=== PATIENT | female | born 1940 | race Caucasian/White ===

== ENCOUNTER 2017-01-26 06:10 | Observation (INO) | payer OTHER ==
--- NOTE | ~2017-01-26 | HP ---
History And Physical [id number] [facility] [place]. [address] NAME: MARY KAY VAZQUEZ : 40 STATUS : ADM Vielka PAT#: [id number] AGE: 76 ADM/REG DATE : 01/26/17 MR#: [id number] REPORT SERV DATE: 01/26/17 DICTATED BY: MARY KAY CERVANTES DATE: 01/26/17 REPORT STATUS : Draft TRANSCRIBED BY: MODL DATE: 01/26/17 DATE OF ADMISSION: 01/26/2017 PRIMARY CARE PROVIDER: Darci Barraza M.D., [place], [place]. BRIM STRETCHER: Phillip Du M.D. CHIEF COMPLAINT: Atypical chest pain. HISTORY OF PRESENT ILLNESS: A very pleasant 76-year-old white female with no known history of CAD, but with chronic systolic heart failure and recently replaced generator for BiV AICD with known EF of 40% by echo on 01/03/2017. The patient presents with atypical chest pain. She reports that on 01/25/2017 she underwent a colonoscopy at [facility] by Dr. Real. She states that polyps were removed and a biopsy was taken. On 01/26/2017, she awoke around 0215 hours with chest pain and back pain. She thought it was a gas, tried Tums with no improvement. She states the chest pain "just hurt." She reports associated shortness of breath, diaphoresis. Denies nausea, dizziness, or belching. At its most intense, the chest pain was rated an 8/10 at time of interview in the CPOU. She is pain free. Episode lasted approximately 3 hours in duration and was relieved with Dilaudid and Zofran provided in the emergency room. She reports that these pains were different than anything she previously experienced and her concern was that they were "persistent." The patient denies any personal history of myocardial infarction, stroke, DVT, or pulmonary embolus. The patient denies any recent fever or chills. Denies palpitations. No shocks delivered. Her device is transmitted telephonically to [facility]. Denies syncopal episodes. No PND or orthopnea. PAST MEDICAL HISTORY: 1. Chronic systolic heart failure with BiV AICD with recent generator replaced, 12/2016. 2. EF 40% by echo, 12/2016. 3. Chronic AFib, INR followed by PCP. 4. Dilated cardiomyopathy. 5. Dyslipidemia. 6. Denies diabetes or hypertension. PAST SURGICAL HISTORY: 1. AICD, upgrade 12/2016. 2. Partial thyroidectomy for growth. SOCIAL HISTORY: She is with one child. She is retired management trainer. Does not have a structured exercise routine. Denies tobacco, alcohol, or illicits. FAMILY HISTORY: No embolic events reported in first-degree relatives. REVIEW OF SYSTEMS: History And Physical [address] [address] NAME: MARY KAY VAZQUEZ : 40 STATUS : ADM iVelka PAT#: [id number] AGE: 76 ADM/REG DATE : 01/26/17 MR#: [id number] REPORT SERV DATE: 01/26/17 DICTATED BY: MARY KAY CERVANTES DATE: 01/26/17 REPORT STATUS : Draft TRANSCRIBED BY: MODL DATE: 01/26/17 A 14-point review of systems performed, significant for HPI including home blood pressure of 120/80 and a most recent INR one week ago of 2.5. Warfarin has been held for four days prior to colonoscopy with instructions to resume tonight. The patient will get INR check at PCP in one week. Otherwise, complete review of systems obtained and negative. ALLERGIES: ALLERGY TO LISINOPRIL, COUGH. HOME MEDICINES: Tums p.r.n., carvedilol 12.5 mg twice daily, Colace p.r.n., Lasix 40 mg daily, losartan 25 mg daily, fenofibrate 54 mg nightly, magnesium p.r.n., warfarin 4 mg nightly. PHYSICAL EXAMINATION: VITAL SIGNS: Blood pressure 151/72, pulse 75, respirations 22, temperature 97.4, O2 saturation 96% on room air. Height 5 feet 6 inches, weight 206 pounds, BMI 33. GENERAL: Cooperative, in no apparent distress. HEENT: Pupils 2 mm, sclera nonicteric. Nares patent. Moist mucous membranes. No xanthelasma. NECK: Trachea midline, no thyromegaly. No JVD. No bruits. LYMPH: No cervical lymphadenopathy. No supraclavicular lymphadenopathy. RESPIRATORY: Unlabored respirations. Breath sounds clear bilaterally to posterior auscultation. No wheezes or rhonchi. CARDIOVASCULAR: Regular rate. No murmur, rub or gallop appreciated. Left greater than right trace ankle edema. Pulses 2+ bilaterally. ABDOMEN: Obese, soft, nontender, nondistended, normal bowel sounds auscultated throughout. No organomegaly. SKIN: Warm, dry extremities. No pallor, or cyanosis. PSYCHIATRIC: Appropriate affect. Alert, oriented x3. LABORATORY DATA: Troponin less than 0.02, 0.03, third pending. Potassium 4.4, BUN 22, creatinine 1.04, glucose 145. Magnesium 2.1. Lipase 120. WBC 8.4, hemoglobin 13.3, hematocrit 39.3, platelet count 170,000. EKG ventricular paced (chronic AFib). Echo, 12/26/2016: EF 40%. Mild global HK. Moderate MARIANN. Trace pericardial effusion. EF improved since echo of 10/2013. Cath 2007: No CAD. CT of abdomen and pelvis: Cardiomyopathy, pacemaker, gallstones. Diverticulosis. Appendix normal. Ultrasound of abdomen: Gallstones with sludge fatty liver. ASSESSMENT AND PLAN: 1. Atypical chest pain which may be GI related. The patient will be observed in the CPOU. Serial enzymes and serial EKGs and held n.p.o. for vasodilator stress test today given ventricular paced. The patient will be discharged home if negative study to follow up with her PCP and Pauline Valdivia as warranted, and Dr. Du in 04/2017. History And Physical [address] [address] NAME: GEORGE,MARY KAYVAZQUEZ EMANUEL : 40 STATUS : ADM Vielka PAT#: [id number] AGE: 76 ADM/REG DATE : 01/26/17 MR#: [id number] REPORT SERV DATE: 01/26/17 DICTATED BY: MARY KAY CERVANTES DATE: 01/26/17 REPORT STATUS : Draft TRANSCRIBED BY: JHONATAN DATE: 01/26/17 2. Chronic systolic heart failure, euvolemic. ejection fraction 40%, improved on most recent echo. 3. Chronic atrial fibrillation, warfarin recently held for four days prior to colonoscopy. The patient will resume warfarin tonight as instructed if no further cardiac testing required with INR checked by PCP in one week. 4. Dyslipidemia, continue fenofibrate. JASON/JHONATAN KIERA Allan, MILVIA-BC / [id number] CC: KIERA Allan, MENAGERIE CARETAKER-BC Phillip Du M.D.
[2017-01-26 06:01] LABS: BASOPHILS 0.1 %; BASOPHILS ABSOLUTE 0.01 10/3/uL (0.0-0.16); EOSINOPHILS 1.8 %; EOSINOPHILS ABSOLUTE 0.15 10/3/uL (0.0-0.53); HEMATOCRIT 39.3 % (36.0-48.0); HEMOGLOBIN 13.3 g/dL (12.0-16.0); IMMATURE GRANULOCYTES 0.2 %; IMMATURE GRANULOCYTES ABSOLUTE 0.02 10/3/uL (0.0-0.11); LYMPHOCYTES 17.7 %; LYMPHOCYTES ABSOLUTE 1.48 10/3/uL (0.67-4.30); MEAN CORPUS HGB CONC 33.8 g/dL (32.0-36.0); MEAN CORPUSCULAR VOLUME 85.8 fL (80-100); MEAN PLATELET VOLUME 9.6 fL (9.2-13.0); MONOCYTES 6.9 %; MONOCYTES ABSOLUTE 0.58 10/3/uL (0.21-1.20); NEUTROPHILS 73.3 %; NEUTROPHILS ABSOLUTE 6.12 10/3/uL (2.02-8.40); PLATELET COUNT 170 10/3/uL (150-400); RBC DISTRIBUTION WIDTH 13.4 % (12.0-16.0); RED CELL COUNT 4.58 10/6/uL (4.0-5.6)
[2017-01-26 06:04] LABS: ER CBC TAT 0 Hrs 08 Mins; MANUAL DIFF NO %; WHITE BLOOD CELLS 8.4 10/3/uL (4.5-10.5)
[2017-01-26 06:09] LABS: INTERNATIONAL NORMAL RATI 1.5 UNITS (-); PARTIAL THROMBO TIME 32.9 SEC (22.5-37.2); PROTIME (NOT ORD) 17.6 SEC (12.0-14.5)
[~2017-01-26 06:10] MED LIST: COREG12 PO; JANTOVEN1 MG PO; JANTOVEN4 MG PO; L40 PO; LOFIBRA54 MG PO; MAGNESIUM PO; PRIN10 PO; VITAMIN D31000 UNIT PO; VITD PO; [UNRECOGNIZED DRUG - OTHER] PO
[2017-01-26 06:19] LABS: ALBUMIN 3.9 G/DL (3.5-5.0); ALKALINE PHOSPHATASE 59 U/L (45-117); BUN (BLOOD UREA NITROGEN) 22 MG/DL (6-23); CALCIUM, SERUM 9.7 MG/DL (8.5-10.4); CHEST PAIN PROFILE TAT 0 Hrs 23 Mins; CHLORIDE, SERUM 109 MMOL/L (96-112); CO2 (CARBON DIOXIDE) 24 MMOL/L (24-34); CREATININE 1.04 MG/DL (0.55-1.02); DIRECT BILIRUBIN 0.2 MG/DL (0.0-0.4); GFR AFRICAN AMERICAN 60 ML/MIN (>=60); GFR NON AFRICAN AMERICAN 52 ML/MIN (>=60); GLUCOSE, SERUM 145 MG/DL (60-99); INDIRECT BILIRUBIN(NOT ORDER) 0.5 MG/DL (0.1-0.9); POTASSIUM, SERUM 4.4 MMOL/L (3.5-5.3); SGOT(AST) 22 U/L (5-40); SGPT(ALT) 18 U/L (5-65); SODIUM, SERUM 141 MMOL/L (135-148); TOTAL BILIRUBIN 0.7 MG/DL (0-1.2); TOTAL PROTEIN 7.2 G/DL (6.0-8.5); TROPONIN I <0.02 NG/ML (<0.05)
[2017-01-26] MEDS ORDERED: FENOFIBRATE PO (09:03)
[2017-01-26] MEDS ORDERED: COREG12 PO (09:03)
[2017-01-26] MEDS ORDERED: COZ25 PO (09:03)
[2017-01-26] MEDS ORDERED: L40 PO (09:04)
[2017-01-26] MEDS ORDERED: COUMADIN4 MG PO (09:04)
[2017-01-26] MEDS ORDERED: MAGNESIUM OTC PO (09:05)
[2017-01-26] MEDS ORDERED: TUMSROLL PO (09:05)
[2017-01-26] MEDS ORDERED: DSS PO (09:06)
[2017-01-26] MEDS ORDERED: MIRALAX POWDER1 PKT PO (09:06)
[2017-01-26] MEDS ORDERED: MAGNESIUM CITRATE PO (09:07)
[2017-01-26 12:10] LABS: TROPONIN I 0.03 NG/ML (<0.05)
[2017-01-26 16:42] LABS: CHOL/HDL RATIO(NOT ORDER) 3.1 (0-5)
[2017-01-27 05:47] LABS: BASOPHILS 0 %; EOSINOPHILS ABSOLUTE 0.16 10/3/uL (0.0-0.53); HEMATOCRIT 38.6 % (36.0-48.0); HEMOGLOBIN 12.5 g/dL (12.0-16.0); LYMPHOCYTES 31.9 %; LYMPHOCYTES ABSOLUTE 1.73 10/3/uL (0.67-4.30); MANUAL DIFF NO %; MEAN CORPUS HGB CONC 32.4 g/dL (32.0-36.0); MEAN CORPUSCULAR HEMOGLOB 28.5 pg (26.0-34.0); MEAN CORPUSCULAR VOLUME 88.1 fL (80-100); MEAN PLATELET VOLUME 9.8 fL (9.2-13.0); MONOCYTES 8.3 %; MONOCYTES ABSOLUTE 0.45 10/3/uL (0.21-1.20); NEUTROPHILS 56.8 %; NEUTROPHILS ABSOLUTE 3.08 10/3/uL (2.02-8.40); PLATELET COUNT 150 10/3/uL (150-400); RBC DISTRIBUTION WIDTH 13.2 % (12.0-16.0); RED CELL COUNT 4.38 10/6/uL (4.0-5.6); WHITE BLOOD CELLS 5.4 10/3/uL (4.5-10.5)
[2017-01-27 05:55] LABS: INTERNATIONAL NORMAL RATI 1.4 UNITS (-); PROTIME (NOT ORD) 17.2 SEC (12.0-14.5)
[2017-01-27 06:06] LABS: A/G RATIO 1.2 (0.7-1.9); ALBUMIN 3.6 G/DL (3.5-5.0); ALKALINE PHOSPHATASE 55 U/L (45-117); BUN (BLOOD UREA NITROGEN) 24 MG/DL (6-23); CALCIUM, SERUM 9.1 MG/DL (8.5-10.4); CHLORIDE, SERUM 105 MMOL/L (96-112); CREATININE 1.19 MG/DL (0.55-1.02); GFR AFRICAN AMERICAN 51 ML/MIN (>=60); GFR NON AFRICAN AMERICAN 44 ML/MIN (>=60); POTASSIUM, SERUM 4.7 MMOL/L (3.5-5.3); SGOT(AST) 19 U/L (5-40); SGPT(ALT) 15 U/L (5-65); SODIUM, SERUM 142 MMOL/L (135-148); TOTAL BILIRUBIN 0.8 MG/DL (0-1.2); TOTAL PROTEIN 6.6 G/DL (6.0-8.5)
[2017-01-27 06:07] LABS: CO2 (CARBON DIOXIDE) 30 MMOL/L (24-34); GLUCOSE, SERUM 104 MG/DL (60-99)
== END 2017-01-27 16:41 | disposition home or self-care (01) ==
LOC: ER 06:10 → CDU1 09:02
PROVIDERS: Clinical Nurse Specialist; Specialist
PROC: 4A023N7 Measurement of Cardiac Sampling and Pressure, Left Heart, Percutaneous Approach (ICD-10-PCS; principal; 2017-01-26)
PROC: B2111ZZ Fluoroscopy of Multiple Coronary Arteries using Low Osmolar Contrast (ICD-10-PCS; 2017-01-26)
PROC: B2151ZZ Fluoroscopy of Left Heart using Low Osmolar Contrast (ICD-10-PCS; 2017-01-26)
DX: I25.110 Atherosclerotic heart disease of native coronary artery with unstable angina pectoris (principal); I48.2 Chronic atrial fibrillation; I42.0 Dilated cardiomyopathy; I50.22 Chronic systolic (congestive) heart failure; I10 Essential (primary) hypertension; E78.5 Hyperlipidemia, unspecified; R05 Cough; E66.9 Obesity, unspecified; Z95.810 Presence of automatic (implantable) cardiac defibrillator; Z79.899 Other long term (current) drug therapy; Z79.01 Long term (current) use of anticoagulants
CPT/HCPCS: 71010; 74176; 76705; 78452; 80048; 80053; 80061; 80076; 83690; 83735; 84484; 85025; 85610; 85730; 93005; 93017; 93458; 96374; 96375; 99152; 99285; A9270-GY; A9502; C1769; C1887; C1894; G0378; J0153; J1170; J2250; J2405; J3010; Q9967